=== PATIENT | male | born 1995 | race Caucasian/White ===

== ENCOUNTER 2021-02-06 09:22 | Emergency (ER) | payer BC, SELFPAY ==
[2021-02-06 10:27] LABS: SARS-COV-2 RT PCR NEGATIVE (NEGATIVE)
--- NOTE | 2021-02-06 11:31 | EDPHYS ---
Physician Documentation [facility] Name: Steve Fine Age: 26 yrs Sex: Male : 1995 Arrival Date: 02/06/2021 Time: 09: Bed 20 Private MD: JUAN JOSE Physician Rodrick Rangel HPI: 02/06 09:32 This 26 yrs old Male presents to ER via Ambulatory with complaints of Cold Symptoms. [facility] 09:32 The patient or guardian reports cough, described as moderate. Onset: The jmm symptoms/episode began/occurred gradually, 3 day(s) ago. Modifying factors: The symptoms are alleviated by nothing. the symptoms are aggravated by nothing. Associated signs and symptoms: Pertinent positives: fever, sore throat, Pertinent negatives:. The patient has not experienced similar symptoms in the past. Historical: - Allergies: 09:32 No Known Allergies; ll1 - PSHx: 09:32 gastric bypass; ll1 - Immunization history:: Client reports receiving the 2nd dose of the Covid vaccine. - Social history:: Smoking status: Patient denies any tobacco usage or history of. ROS: 09:32 Constitutional: Positive for body aches, chills, fever. jmm 09:32 Respiratory: Positive for cough. 09:32 Abdomen/GI: Negative for nausea and vomiting, diarrhea. 09:32 All other systems are negative. Exam: 09:32 Constitutional: This is a well developed, well nourished patient who is awake, alert, jmm and in no acute distress. Head/Face: atraumatic. Eyes: EOMI, no conjunctival erythema appreciated 09:32 Neck: Trachea midline, Supple Chest/axilla: Normal chest wall appearance and motion. Cardiovascular: Regular rate and rhythm. No edema appreciated Respiratory: Normal respirations, no respiratory distress appreciated Abdomen/GI: Non distended, soft Back: Normal ROM Skin: General appearance color normal MS/ Extremity: Moves all extremities, no obvious deformities appreciated, no edema noted to the lower extremities Neuro: Awake and alert, normal gait Psych: Behavior is normal, Mood is normal, Patient is cooperative and pleasant 09:32 ENT: Posterior pharynx: erythema, that is moderate. Vital Signs: 09:32 BP 126 / 72; Pulse 89; Resp 17; Temp 97.8; Pulse Ox 99% on R/A; Weight 120.2 kg; Height ll1 5 ft. 10 in. (177.80 cm); Pain 6/10; 11:39 BP 126 / 83; Pulse 84; Resp 17; Pulse Ox 99% on R/A; Pain 4/10; ll1 09:32 Body Mass Index 38.02 (120.20 kg, 177.80 cm) ll1 MDM: 09:29 Patient medically screened. [facility] 11:27 Data reviewed: vital signs, nurses notes. Counseling: I had a detailed discussion with torri the patient and/or guardian regarding: the historical points, exam findings, and any diagnostic results supporting the discharge/admit diagnosis, lab results, the need for outpatient follow up, to return to the emergency department if symptoms worsen or persist or if there are any questions or concerns that arise at home. 02/06 09:27 Order name: Strep; Complete Time: 10:52 [facility] 02/06 09:37 Order name: COVID-19/FLU A+B; Complete Time: 10:31 EDMS 02/06 10:44 Order name: Throat Culture EDND Administered Medications: No medications were administered Disposition: 02/07 10:29 Co-signature as Attending Physician, Rodrick Rangel MD I agree with the assessment and [facility] plan of care. Disposition Summary: 02/06/21 11:30 Discharge Ordered Location: Home [facility] Condition: Stable [facility] Diagnosis - Acute pharyngitis, unspecified [facility] Followup: [facility] - With: Private Physician - When: 2 - 3 days - Reason: Recheck today's complaints, Continuance of care, Re-evaluation by your physician Discharge Instructions: - Discharge Summary Sheet [facility] - Pharyngitis [facility] Forms: - Medication Reconciliation Form [facility] - Thank You Letter [facility] - Antibiotic Education [facility] - Prescription Opioid Use [facility] - Work release form ll1 Prescriptions: - Zithromax Z-Wellington 250 mg Oral Tablet - take 1 tablet by ORAL route as directed for 5 days Day 1 - take two (2) tablets [facility] one time. Day 2, 3, 4 , 5 take one (1) tablet once daily.; 6 tablet; Refills: 0, Product Selection Permitted Signatures: Dispatcher [employer] Rodrick Felder MD MD cha Mickail, Joel, PA PA jmm Lewis, Lynsay, RN RN ll1 Corrections: (The following items were deleted from the chart) 02/06 09:38 09:27 Influenza Screen (A \T\ B)+BA.LAB.YULIET ordered. EDMS EDMS 09:27 SARS-COV-2 RT PCR+MOL.LAB.YULIET ordered. EDMS EDMS
--- NOTE | 2021-02-06 11:31 | ER ---
Nurse's Notes [facility] Name: Steve Fine Age: 26 yrs Sex: Male : 1995 Arrival Date: 02/06/2021 Time: 09:26 Bed 20 Private MD: Diagnosis: Acute pharyngitis, unspecified Presentation: 02/06 09:32 Chief complaint: Patient states: Runny nose, slight cough, throat soreness, tired ll1 off/on since Friday. No fever. Coronavirus screen: Vaccine status: Patient reports receiving the 2nd dose of the covid vaccine. Client denies travel out of the [place] in the last 14 days. congestion, cough unrelated to allergies, diarrhea, fatigue, fever, nausea, runny nose, sore throat, Client presents with at least one sign or symptom that may indicate coronavirus-19. Standard/surgical mask placed on the client. Ebola Screen: Patient denies travel to an Ebola-affected area in the 21 days before illness onset. Initial Sepsis Screen: Does the patient meet any 2 criteria? No. Patient's initial sepsis screen is negative. Does the patient have a suspected source of infection? Yes: Productive cough/pneumonia. Risk Assessment: Do you want to hurt yourself or someone else? Patient reports no desire to harm self or others. Onset of symptoms was February 03, 2021. 09:32 Method Of Arrival: Ambulatory ll1 09:32 Acuity: MYA 4 ll1 Triage Assessment: 09:36 General: Appears in no apparent distress. Behavior is calm, cooperative, appropriate ll1 for age. Pain: Complains of pain in throat Pain currently is 6 out of 10 on a pain scale. Quality of pain is described as aching, Aggravated by eating, drinking. EENT: Nares are clear reports runny nose. reports sore throat. Reports difficulty swallowing nasal congestion nasal discharge. Neuro: No deficits noted. Cardiovascular: No deficits noted. Respiratory: Reports cough that is Airway is patent Trachea midline Respiratory effort is even, unlabored, Respiratory pattern is regular, symmetrical, Breath sounds are clear bilaterally. GI: Abdomen is flat, Bowel sounds present X 4 quads. Reports diarrhea. Historical: - Allergies: 09:32 No Known Allergies; ll1 - PSHx: :32 gastric bypass; ll1 - Immunization history:: Client reports receiving the 2nd dose of the Covid vaccine. - Social history:: Smoking status: Patient denies any tobacco usage or history of. Screenin:35 Abuse screen: Denies threats or abuse. Nutritional screening: No deficits noted. ll1 Tuberculosis screening: No symptoms or risk factors identified. Fall Risk Total Meyers Fall Scale indicates No Risk (0-24 pts). Assessment: 10:30 Reassessment: No changes from previously documented assessment. Patient and/or family ll1 updated on plan of care and expected duration. Pain level reassessed. Patient is alert, oriented x 3, equal unlabored respirations, skin warm/dry/pink. 11:30 Reassessment: No changes from previously documented assessment. Patient and/or family ll1 updated on plan of care and expected duration. Pain level reassessed. Patient is alert, oriented x 3, equal unlabored respirations, skin warm/dry/pink. Vital Signs: 09:32 BP 126 / 72; Pulse 89; Resp 17; Temp 97.8; Pulse Ox 99% on R/A; Weight 120.2 kg; Height ll1 5 ft. 10 in. (177.80 cm); Pain 6/10; 11:39 BP 126 / 83; Pulse 84; Resp 17; Pulse Ox 99% on R/A; Pain 4/10; ll1 09:32 Body Mass Index 38.02 (120.20 kg, 177.80 cm) ll1 ED Course: 09:26 Patient arrived in ED. am2 09:26 Subhash Brown PA is PHCP. [facility] 09:26 Rodrick Rangel MD is Attending Physician. [facility] 09:32 Kayla Kuhn, ALYSON is Primary Nurse. ll1 09:32 Arm band placed on Patient placed in an exam room, on a stretcher. ll1 09:35 Triage completed. ll1 09:35 Patient has correct armband on for positive identification. Bed in low position. Call 1 light in reach. Side rails up X 1. Pulse ox on. NIBP on. 09:40 COVID swab sent to lab. Flu and/or RSV swab sent to lab. mb7 11:40 No provider procedures requiring assistance completed. Patient did not have IV access ll1 during this emergency room visit. Administered Medications: No medications were administered Outcome: 11:30 Discharge ordered by . torri 11:40 Discharged to home ambulatory. ll1 11:40 Condition: stable 11:40 Discharge instructions given to patient, Instructed on discharge instructions, follow up and referral plans. medication usage, Demonstrated understanding of instructions, follow-up care, medications, Prescriptions given X 1. 11:40 Patient left the ED. ll1 Signatures: Subhash Brown PA PA jmm Moreno, Amanda am2 Lewis, Lynsay, RN RN ll1 Shanel Wilde mb7
[2021-02-06 11:45] VITALS: TEMP 97.8; O2SAT 99
[2021-02-06 11:47] VITALS: BP 126/83
== END 2021-02-06 11:40 | disposition home or self-care (01) ==
LOC: ER 09:22
DX: J02.9 Acute pharyngitis, unspecified (principal); Z20.822 Contact with and (suspected) exposure to COVID-19
CPT/HCPCS: 0240U; 87070; 87081; 99283

== ENCOUNTER 2022-10-20 12:14 | Emergency (ER) | payer SELFPAY ==
[2022-10-20] MEDS ORDERED: LIDOCAINE HCL JELLY 2% 6 ML SYRINGE TOP ONE (12:57)
--- NOTE | 2022-10-20 13:09 | ER ---
Nurse's Notes [facility] Name: Steve Fine Age: 27 yrs Sex: Male : 1995 Arrival Date: 10/20/2022 Time: 12:14 Bed 12 Private MD: Diagnosis: Paronychia Presentation: 10/20 12:24 Chief complaint: Patient states: Left 4th finger nail edge swelling and pain. Has tried nj1 fungal cream yesterday but today the pain was worse along with swelling. Took ibuprofen this morning which has helped with the pain. Coronavirus screen: Vaccine status: Patient reports receiving the 2nd dose of the covid vaccine. Ebola Screen: Patient denies travel to an Ebola-affected area in the 21 days before illness onset. Initial Sepsis Screen: Does the patient meet any 2 criteria? HR > 90 bpm. No. Patient's initial sepsis screen is negative. Does the patient have a suspected source of infection? No. Patient's initial sepsis screen is negative. Risk Assessment: Do you want to hurt yourself or someone else? Patient reports no desire to harm self or others. Onset of symptoms was October 18, 2022. 12:24 Method Of Arrival: Ambulatory [facility] 12:24 Acuity: MYA 4 nj1 Triage Assessment: 12:27 General: Appears in no apparent distress. comfortable, Behavior is calm, cooperative, nj1 appropriate for age. Pain: Complains of pain in left ring fingernail Pain currently is 6 out of 10 on a pain scale. Quality of pain is described as throbbing. Neuro: Level of Consciousness is awake, alert, obeys commands, Oriented to person, place, time, situation. Cardiovascular: Patient's skin is warm and dry. Respiratory: Airway is patent Respiratory effort is even, unlabored. Derm:. Derm: Swelling noted to lateral nail fold (left 4th digit). Historical: - Allergies: 12:26 No Known Allergies; nj1 - PMHx: 12:26 None; nj1 - PSHx: 12:26 Gastric Bypass; nj1 - Immunization history:: Client reports receiving the 2nd dose of the Covid vaccine. - Social history:: Smoking status: Patient denies any tobacco usage or history of. Screenin:29 [facility] ED Fall Risk Assessment (Adult) Score/Fall Risk Level 0 - 2 = Low Risk nj Oriented to surroundings, Maintained a safe environment, Hourly rounding (assess needs \T\ fall precautionary measures) done. Abuse screen: Denies threats or abuse. Denies injuries from another. Nutritional screening: No deficits noted. Tuberculosis screening: No symptoms or risk factors identified. Vital Signs: 12:24 BP 146 / 97; Pulse 92; Resp 18; Temp 98.6; Pulse Ox 99% ; Weight 131.54 kg; Height 5 nj1 ft. 10 in. ; Pain 6/10; 12:24 Body Mass Index 41.61 (131.54 kg, 177.8 cm) nj1 12:24 Pain Scale: Adult [facility] ED Course: 12:16 Patient arrived in ED. ts1 12:19 [facility]C [facility] 12:19 Gm Edmond MD is Attending Physician. snw 12:26 Triage completed. nj1 12:27 Arm band placed on right wrist. nj1 12:29 Patient has correct armband on for positive identification. Bed in low position. Call [facility] light in reach. Provided Education on: fall precautions, call light. Administered Medications: 12:49 Drug: Lidocaine Mucous Membrane Gel 2 % 1 application Route: Mucous Membrane; nj1 13:25 Drug: Mupirocin Topical Ointment 2 % 1 application Route: Topical; Site: affected area; [facility] Outcome: 13:09 Discharge ordered by . snw 13:29 Patient left the ED. hb Signatures: Leanne Brown FNP-C FNP-Csnw Supriya Soto RN RN Macy Perrin RN RN nj1 Jacinta Valencia PAS [place] [id number]
--- NOTE | 2022-10-20 13:09 | EDPHYS ---
Physician Documentation [facility] Name: Steve Fine Age: 27 yrs Sex: Male : 1995 Arrival Date: 10/20/2022 Time: 12:14 Bed 12 Private MD: ED Physician Gm Edmond HPI: 10/20 12:40 This 27 yrs old Male presents to ER via Ambulatory with complaints of Nail pain. snw 12:40 Onset: The symptoms/episode began/occurred acutely, and became persistent. The patient snw has not experienced similar symptoms in the past. It is unknown whether or not the patient has recently seen a physician. Historical: - Allergies: 12:26 No Known Allergies; nj1 - PMHx: 12:26 None; nj1 - PSHx: 12:26 Gastric Bypass; nj1 - Immunization history:: Client reports receiving the 2nd dose of the Covid vaccine. - Social history:: Smoking status: Patient denies any tobacco usage or history of. ROS: 12:40 Constitutional: Negative for fever, chills, and weight loss, Eyes: Negative for injury, snw pain, redness, and discharge, ENT: Negative for injury, pain, and discharge, Neck: Negative for injury, pain, and swelling, Cardiovascular: Negative for chest pain, palpitations, and edema, Respiratory: Negative for shortness of breath, cough, wheezing, and pleuritic chest pain, Abdomen/GI: Negative for abdominal pain, nausea, vomiting, diarrhea, and constipation, Back: Negative for injury and pain, : Negative for injury, bleeding, discharge, and swelling, MS/Extremity: Negative for injury and deformity, Neuro: Negative for headache, weakness, numbness, tingling, and seizure, Psych: Negative for depression, anxiety, suicide ideation, homicidal ideation, and hallucinations. 12:40 Skin: Positive for painful to left 4th fingernail. Exam: 12:39 Constitutional: This is a well developed, well nourished patient who is awake, alert, snw and in no acute distress. Head/Face: Normocephalic, atraumatic. Eyes: Pupils equal round and reactive to light, extra-ocular motions intact. Lids and lashes normal. Conjunctiva and sclera are non-icteric and not injected. Cornea within normal limits. Periorbital areas with no swelling, redness, or edema. ENT: Nares patent. No nasal discharge, no septal abnormalities noted. Tympanic membranes are normal and external auditory canals are clear. Oropharynx with no redness, swelling, or masses, exudates, or evidence of obstruction, uvula midline. Mucous membranes moist. Neck: Trachea midline, no thyromegaly or masses palpated, and no cervical lymphadenopathy. Supple, full range of motion without nuchal rigidity, or vertebral point tenderness. No Meningismus. Chest/axilla: Normal chest wall appearance and motion. Nontender with no deformity. No lesions are appreciated. Back: No spinal tenderness. No costovertebral tenderness. Full range of motion. Skin: Warm, dry with normal turgor. Normal color with no rashes, no lesions, and no evidence of cellulitis. left fourth finger tender, collection of pus noted at nail margin. MS/ Extremity: Pulses equal, no cyanosis. Neurovascular intact. Full, normal range of motion. Neuro: Awake and alert, GCS 15, oriented to person, place, time, and situation. Cranial nerves II-XII grossly intact. Motor strength 5/5 in all extremities. Sensory grossly intact. Cerebellar exam normal. Normal gait. Psych: Awake, alert, with orientation to person, place and time. Behavior, mood, and affect are within normal limits. Vital Signs: 12:24 BP 146 / 97; Pulse 92; Resp 18; Temp 98.6; Pulse Ox 99% ; Weight 131.54 kg; Height 5 nj1 ft. 10 in. ; Pain 6/10; 12:24 Body Mass Index 41.61 (131.54 kg, 177.8 cm) nj 12:24 Pain Scale: Adult nj1 MDM: 12:30 Patient medically screened. snw 13:10 Differential diagnosis: bacterial infection. Data reviewed: vital signs, nurses notes. snw Counseling: I had a detailed discussion with the patient and/or guardian regarding the historical points, exam findings, and any diagnostic results supporting the discharge/admit diagnosis, the need for outpatient follow up, for definitive care, to return to the emergency department if symptoms worsen or persist or if there are any questions or concerns that arise at home. Response to treatment: the patient's symptoms have markedly improved after treatment. Special discussion: Based on the history and exam findings, there is no indication for further emergent testing or inpatient evaluation. I discussed with the patient/guardian the need to see the primary care provider for further evaluation of the symptoms. Administered Medications: 12:49 Drug: Lidocaine Mucous Membrane Gel 2 % 1 application Route: Mucous Membrane; nj1 13:25 Drug: Mupirocin Topical Ointment 2 % 1 application Route: Topical; Site: affected area; nj1 Disposition Summary: 10/20/22 13:09 Discharge Ordered Location: Home snw Condition: Stable snw Diagnosis - Paronychia snw Followup: snw - With: Emergency Department - When: As needed - Reason: Worsening of condition Followup: snw - With: Private Physician - When: As needed - Reason: Discharge Instructions: - Discharge Summary Sheet snw - Paronychia snw Forms: - Medication Reconciliation Form snw - Thank You Letter snw - Antibiotic Education snw - Prescription Opioid Use snw - Patient Portal Instructions snw - Leadership Thank You Letter snw - Work release form nj Prescriptions: - mupirocin 2 % Topical ointment - apply 1 application by TOPICAL route 3 times per day; 15 gram tube; Refills: 0, snw Product Selection Permitted - Mobic 7.5 mg Oral Tablet - take 1 tablet by ORAL route once daily take with food; 20 tablet; Refills: 0, snw Product Selection Permitted Signatures: Leanne Brown FNP-C [employer]-Csnw Macy Perrin, RN RN nj1
[2022-10-20] MEDS ORDERED: MUPIROCIN 2% OINT 22GM TUBE TOP ONE (13:29)
[2022-10-20 13:36] VITALS: BP 146/97; TEMP 98.6; O2SAT 99
== END 2022-10-20 13:29 | disposition home or self-care (01) ==
LOC: ER 12:14
DX: L03.012 Cellulitis of left finger (principal)
CPT/HCPCS: 99282

== ENCOUNTER 2024-04-04 15:31 | Emergency (ER) | payer OTHER, SELFPAY ==
--- OUTSIDE RECORDS SUMMARY | 2024-04-04 15:34 | XMS REPORT | Continuity of Care Document ---
Author Name Unknown Address [address] [facility] [address] [place] [address] [facility] thconnect Address [address] [facility] [address] [place] [address] Care Team Providers Care Electroneurodiagnostic Technician Name Role Phone HAILY QUESADA M.D. 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, not elsewhere classified Problem Active [facility] Malnutriti on Malnutriti on Problem Active [facility] Vital Signs Vital Name Observation Time Observation Value Comments S ource Weight 2019-07-30 08:28:00 341 [lb_av] [facility] Body height 2019-07-30 08:28:00 70 [in_us] [facility] Body mass index (BMI) [Ratio] 2019-07-30 08:28:00 48.93 kg/m2 [facility] Height 2019-01-18 12:17:00 70 [in_us] [facility] Weight 2019-01-18 12:17:00 359.9 [lb_av] [facility] Body Mass Index Calculated 2019-01-18 12:17:00 51.64 kg/m2 [facility] BP Systolic 2018-09-04 10:04:00 114 mm[Hg] [facility] BP Diastolic 2018-09-04 10:04:00 52 mm[Hg] [facility] Height 2018-09-04 10:04:00 70 [in_us] [facility] Weight 2018-09-04 10:04:00 376.7 [lb_av] [facility] Body Mass Index Calculated 2018-09-04 10:04:00 54.05 kg/m2 [facility] Temperature 2018-09-04 10:04:00 97.1 [degF] [facility] Heart Rate 2018-09-04 10:04:00 90 /min [facility] Procedures Procedure Date / Time Performed Performing Clinicia n Source [LH] CBC (without differential) 2018-09-04 00:00:00 [facility] [QL] COMPREHENSIVE METABOLIC PANEL W/O eGFR 2018-09-04 00:00:00 [facility] [QLH] FOLATE, SERUM 2018-09-04 00:00:00 [facility] [QLH] HEMOGLOBIN A1c 2018-09-04 00:00:00 [facility] [QLH] IRON AND TOTAL IRON BINDING CAPACITY 2018-09-04 00:00:00 [facility] [QLH] LIPID PANEL 2018-09-04 00:00:00 [facility] [QLH] PTH, INTACT (WITHOUT CALCIUM) 2018-09-04 00:00:00 [facility] [QLH] TSH, 3RD GENERATION 2018-09-04 00:00:00 [facility] [QLH] VITAMIN A (RETINOL) 2018-09-04 00:00:00 [facility] [QLH] VITAMIN B1, WHOLE BLOOD 2018-09-04 00:00:00 [facility] [QLH] VITAMIN B12 2018-09-04 00:00:00 [facility] [QLH] VITAMIN D, 25-HYDROXY, LC/MS/MS 2018-09-04 00:00:00 [facility] [QLH] VITAMIN E (TOCOPHEROL) 2018-09-04 00:00:00 [facility] Encounters Start Date/Time End Date/Time Encounter Type Admission Type Attending Clinicians Care Facility Care Department Encounter ID Source 2019-07-30 08:00:00 2019-07-30 08:00:00 Appointdali t; HAILY QUESADA M.D. BAJWA, KULVINDER, M.D. [facility] [id number] [facility] 2019-07-22 05:51:00 2019-07-26 10:38:00 Inpatient HAILY QUESADA [facility] [id number] [facility] 2019-05-14 09:00:00 2019-05-14 09:00:00 Appointmen t; HAILY QUESADA M.D. BAJWA, KULVINDER, M.D. [facility] [id number] [facility] 2019-03-01 13:00:00 2019-03-01 13:00:00 Appointmen t; WOLIN-RIKL INGEETA, RD WOLIN-RIKLI N, GEETA, RD [facility] [id number] [facility] 2019-02-18 09:45:00 2019-02-18 09:45:00 Appointmen t; WOLIN-RIKL INGEETA RD REMAIN-RIKLI N, GEETA, RD [facility] [id number] [facility] 2019-01-18 13:00:00 2019-01-18 13:00:00 Appointmen t; WOLIN-RIKL INGEETA RD REMAIN-RIKLI N, GEETA, RD [facility] [id number] [facility] 2019-01-18 12:30:00 2019-01-18 12:30:00 Appointmen t; GREGORY CHAPMAN APRN KLEIN, CONNIE, APRN [facility] [id number] [facility] 2018-12-17 09:00:00 2018-12-17 09:00:00 Appointmen t; WOLIN-RIKL INGEETA RD WOLIN-RIKLI N, GEETA, RD [facility] [id number] [facility] 2018-12-10 09:00:00 2018-12-10 09:00:00 Appointmen t; WOLIN-RIKL INGEETA RD REMAIN-RIKLI N, GEETA, RD [facility] [id number] [facility] 2018-11-12 09:00:00 2018-11-12 09:00:00 Appointmen t; WOLIN-RIKL INGEETA RD REMAIN-RIKLI N, GEETA, RD [facility] [id number] [facility] 2018-10-14 08:15:00 2018-10-14 08:15:00 Appointmen t; HAILY QUESADA M.D. BAJWA, KULVINDER, M.D. [facility] [id number] [facility] 2018-10-14 06:25:00 2018-10-14 06:25:00 Outpatient [facility] [id number] [facility] 2018-10-08 09:00:00 2018-10-08 09:00:00 Appointmen t; GEETA ROMAN, RD GEETA ELIZONDO RD [facility] [id number] [facility] 2018-09-04 10:00:00 2018-09-04 10:00:00 Appointmen t; HAILY QUESADA M.D. BAJWA, KULVINDER, M.D. [facility] ([facility]) [id number] [facility] Results Test Description Test Time Test Comments Results Result Co mments Source [facility] VITAMIN D, 25-HYDROXY, LC/MS/[id number] 11:38:01* Test Item Value Reference Range Interpretation Comme nts Vitamin D, 25-OH, Total (test code = Vitamin D, 25-OH, Total) 16.9 ng/ml 30.0-100.0 Reference range is based on recommendations in the [employer] Clinical Practice Guideline (J Clin Endocrinol Ehppj1129;96:6510-0463) [facility][QL] FOLATE, [id number] 11:38:01* Test Item Value Reference Range Interpretation Comme nts Folate Level (test code = 2284-8) 7.8 ng/ml >=3.0 [facility][QL] IRON AND TOTAL IRON BINDING [id number] 11:38:01* Test Item Value Reference Range Interpretation Comme nts Iron (test code = 2498-4) 71 ug/dL 45-160 % Satur Fe (test code = 2502-3) 20 % 12-57 TIBC (test code = 2500-7) 353 ug/dL 228-428 UIBC (test code = UIBC) 282 ug/dL 110-370 [facility] LIPID [id number] 11:38:01* Test Item Value Reference Range Interpretation Comme nts LDL; Above High Threshold (t est code = 72120-1) 109 mg/dl <=99 Chol (test code = 2093-3) 170 mg/dl <=199 Trig (test code = 2571-8) 95 mg/dl <=149 HDL Cholesterol; Below Low Threshold (test code = 2085-9) 42 mg/dl >=61 CHD Risk (test code = 52646-9) 4.05 4.00-7.30 VLDL (test code = VLDL) 19 [facility][QLH] TSH, 3RD [id number] 11:38:01* Test Item Value Reference Range Interpretation Comme nts TSH (test code = 10580-2) 0.481 {uIU/ml} 0.360-3.740 [facility][QL] VITAMIN [id number] 11:38:01* Test Item Value Reference Range Interpretation Comme [facility] Vitamin B12 Level (test code = 2132-9) 368 pg/ml 254-1320 [facility][QL] HEMOGLOBIN [id number] 11:38:01* Test Item Value Reference Range Interpretation Comme [facility] Hemoglobin A1c (test code = 4548-4) 5.5 % <=5.6 [facility][QL] PTH, INTACT (WITHOUT CALCIUM)2018-09-04 11:38:01* Test Item Value Reference Range Interpretation Comme [facility] Parathyroid Hormone Intact ( test code = 2731-8) 62.6 pg/ml 18.4-80.1 [facility][] Vitamin E [id number] 11:38:01* Test Item Value Reference Range Interpretation Comme [facility] Alpha-Tocoph yoana (test code = Alpha-Tocoph yoana) 6.3 mg/L 5.9-19.4 This test was de veloped and its performance characteristicsdetermined by [facility]. It has not been cleared orapproved by the Food and Drug Administration. Gamma-Tocoph yoana (test code = Gamma-Tocoph yoana) 2.0 mg/L 0.7-4.9 This test was de veloped and its performance characteristicsdetermined by [facility]. It has not been cleared orapproved by the Food and Drug Administration.Reference intervals for alpha and gamma-tocopheroldetermined from National Health and Nutrition ExaminationSurvey, . Individuals with alpha-tocopherol levelsless than 5.0 mg/L are considered vitamin E deficient.Performed At: [facility] [id number] De Jesus Ferris MD Ph:[phone] [facility][H] Vit [id number] 11:38:01* Test Item Value Reference Range Interpretation Comme nts Vitamin A Level (test code = Vitamin A Level) 41.0 ug/dL 18.9-57.3 Reference interv als for vitamin A determined from [facility] studies. Individuals with vitamin A less than 20ug/dL are considered vitamin A deficient and those withserum concentrations less than 10 ug/dL are consideredseverely deficient.This test was developed and its performance characteristicsdetermined by [facility]. It has not been cleared orapproved by the Food and Drug Administration.Performed At: [facility] [id number] De Jesus Ferris MD Ph:[phone] [facility][QLH] VITAMIN B1, WHOLE [id number] 11:38:01* Test Item Value Reference Range Interpretation Comme nts Vitamin B1 Level (test code = Vitamin B1 Level) 101.5 nmol/L 66.5-200.0 This test was develo ped and its performance characteristicsdetermined by [facility]. It has not been cleared orapproved by the Food and Drug Administration.Performed At: [facility] [id number] De Jesus Ferris MD Ph:[phone] [facility]
--- NOTE | 2024-04-04 16:05 | EDPHYS ---
Physician Documentation [facility] Name: Steve Fine Age: 29 yrs Sex: Male : 1995 Arrival Date: 04/04/2024 Time: 15:31 Bed IW2 Private MD: ED Physician Duran Hernandez HPI: 04/04 16:02 This 29 yrs old Male presents to ER via Unassigned with complaints of Sore Throat. rn 16:02 The patient presents with sore throat. The patient describes throat pain as raw. Onset: rn The symptoms/episode began/occurred today. Severity of symptoms: At their worst the symptoms were mild, in the emergency department the symptoms are unchanged. The patient has not experienced similar symptoms in the past. Historical: - Allergies: 16:05 Bees; cm10 - Home Meds: 16:05 None [Active]; cm10 - PMHx: 16:05 None; cm10 - PSHx: 16:05 Gastric Bypass; cm10 - Immunization history:: Adult Immunizations up to date. - Infectious Disease History:: Denies. - Family history:: not pertinent. - Social history:: Smoking status: Patient denies any tobacco usage or history of. - Hospitalizations: : No recent hospitalization is reported. ROS: 16:02 Constitutional: Negative for fever, chills, and weight loss, ENT: Positive for sore rn throat Cardiovascular: Negative for chest pain, palpitations, and edema, Respiratory: Positive for cough, negative for shortness of breath Abdomen/GI: Negative for abdominal pain, nausea, vomiting, diarrhea, and constipation, Back: Negative for injury and pain, MS/Extremity: Negative for injury and deformity, Neuro: Negative for headache, weakness, numbness, tingling, and seizure, Exam: 16:02 Constitutional: This is a well developed, well nourished patient who is awake, alert, rn and in no acute distress. ENT: Mild pharyngeal erythema, uvula midline, no stridor Neck: Nontender cervical lymphadenopathy. No meningismus. Vital Signs: 16:04 BP 138 / 67; Pulse 100; Resp 15; Temp 99.1; Pulse Ox 100% ; Weight 127.01 kg; Height 5 cm10 ft. 8 in. ; Pain 7/10; 16:04 Body Mass Index 42.57 (127.01 kg, 172.72 cm) cm10 16:04 Pain Scale: Adult cm10 MDM: 15:43 Medical Screening Exam initiated rn 16:05 Differential diagnosis: group A strep tonsillitis, pharyngitis. Data reviewed: vital rn signs, nurses notes, and as a result, I will discharge patient. Counseling: I had a detailed discussion with the patient and/or guardian regarding the historical points, exam findings, and any diagnostic results supporting the discharge/admit diagnosis, the need for outpatient follow up, to return to the emergency department if symptoms worsen or persist or if there are any questions or concerns that arise at home. Special discussion: I discussed with the patient/guardian in detail that at this point there is no indication for admission to the hospital. It is understood, however, that if the symptoms persist or worsen the patient needs to return immediately for re-evaluation. Administered Medications: No medications were administered Disposition Summary: 04/04/24 16:05 Discharge Ordered Notes: Location: Home rn Problem: new rn Symptoms: have improved rn Condition: Stable rn Diagnosis - Acute pharyngitis, unspecified rn Followup: rn - With: Private Physician - When: As needed - Reason: Recheck today's complaints, Re-evaluation by your physician Discharge Instructions: - Pharyngitis rn - Sore Throat rn - Discharge Summary Sheet cm10 Forms: - Medication Reconciliation Form rn - Antibiotic corn breeder - Prescription Opioid Use rn - Patient Portal Instructions rn - Leadership Thank You Letter rn - Work release form cm10 Prescriptions: - Augmentin 875-125 mg Oral Tablet - take 1 tablet ORAL route every 12 hours for 10 days; 20 tablet; Refills: 0, rn Product Selection Permitted Signatures: Duran Hernandez MD MD rn Martinez, Clarissa, RN RN [facility]
--- NOTE | 2024-04-04 16:05 | ER ---
Nurse's Notes [facility] Name: Steve Fine Age: 29 yrs Sex: Male : 1995 Arrival Date: 04/04/2024 Time: 15:31 Bed IW2 Private MD: Diagnosis: Acute pharyngitis, unspecified Presentation: 04/04 16:03 Chief complaint: Patient states: Sore throat and cough onset today. cm10 16:04 Coronavirus screen: Client denies travel out of the [place] in the last 14 days. Ebola cm10 Screen: Patient denies travel to an Ebola-affected area in the 21 days before illness onset. Initial Sepsis Screen: Does the patient meet any 2 criteria? HR > 90 bpm. Does the patient have a suspected source of infection? No. Patient's initial sepsis screen is negative. Risk Assessment: Do you want to hurt yourself or someone else? Patient reports no desire to harm self or others. Onset of symptoms was April 04, 2024. 16:04 Method Of Arrival: Ambulatory cm10 16:04 Acuity: MYA 4 cm10 Triage Assessment: 16:05 General: Appears in no apparent distress. comfortable, Behavior is calm, cooperative. cm10 Pain: Complains of pain in Throat Pain currently is 7 out of 10 on a pain scale. EENT: Reports pain when swallowing. Neuro: No deficits noted. Level of Consciousness is awake, alert, obeys commands, Oriented to person, place, time, situation, Appropriate for age. Respiratory: No deficits noted. Airway is patent Respiratory effort is even, unlabored, Respiratory pattern is regular, symmetrical. Derm: No deficits noted. Skin is pink, warm \T\ dry. Musculoskeletal: No deficits noted. Range of motion: intact in all extremities. Historical: - Allergies: 16:05 Bees; cm10 - Home Meds: 16:05 None [Active]; cm10 - PMHx: 16:05 None; cm10 - PSHx: 16:05 Gastric Bypass; cm10 - Immunization history:: Adult Immunizations up to date. - Infectious Disease History:: Denies. - Family history:: not pertinent. - Social history:: Smoking status: Patient denies any tobacco usage or history of. - Hospitalizations: : No recent hospitalization is reported. Screenin:06 [facility] ED Fall Risk Assessment (Adult) History of falling in the last 3 months, cm10 including since admission No falls in past 3 months (0 pts) Confusion or Disorientation No (0 pts) Intoxicated or Sedated No (0 pts) Impaired Gait No (0 pts) Mobility Assist Device Used No (0 pt) Altered Elimination No (0 pt) Score/Fall Risk Level 0 - 2 = Low Risk Oriented to surroundings, Maintained a safe environment, Hourly rounding (assess needs \T\ fall precautionary measures) done. Abuse screen: Denies threats or abuse. Denies injuries from another. Nutritional screening: No deficits noted. Tuberculosis screening: No symptoms or risk factors identified. Vital Signs: 16:04 BP 138 / 67; Pulse 100; Resp 15; Temp 99.1; Pulse Ox 100% ; Weight 127.01 kg; Height 5 cm10 ft. 8 in. ; Pain 7/10; 16:04 Body Mass Index 42.57 (127.01 kg, 172.72 cm) cm10 16:04 Pain Scale: Adult cm10 ED Course: 15:34 Patient arrived in ED. ra3 15:42 Duran Hernandez MD is Attending Physician. rn 16:05 Triage completed. cm10 16:05 Arm band placed on right wrist. Patient placed in waiting room. cm10 16:06 Patient has correct armband on for positive identification. Provided Education on: cm10 Follow-up instructions. 16:06 No provider procedures requiring assistance completed. Patient did not have IV access cm10 during this emergency room visit. Administered Medications: No medications were administered Medication: 16:06 VIS not applicable for this client. cm10 Outcome: 16:05 Discharge ordered by . rn 16:06 Discharged to home ambulatory, cm10 16:06 Condition: good 16:06 Discharge instructions given to patient, Instructed on discharge instructions, follow up and referral plans. medication usage, Demonstrated understanding of instructions, follow-up care, medications, Prescriptions given X 1, 16:09 Patient left the ED. cm10 Signatures: Duran Hernandez MD MD rn Martinez, Clarissa, RN RN cm10 Alva, Ruby ra3
[2024-04-04 16:30] VITALS: BP 138/67; TEMP 99.1; O2SAT 100
== END 2024-04-04 16:09 | disposition home or self-care (01) ==
LOC: ER 15:31
DX: J02.9 Acute pharyngitis, unspecified (principal)
CPT/HCPCS: 99283

== ENCOUNTER 2024-11-30 02:21 | Emergency (ER) | payer OTHER ==
--- OUTSIDE RECORDS SUMMARY | 2024-11-30 02:24 | XMS REPORT | Continuity of Care Document ---
Author Name Unknown Address [address] [facility] [address] [place] [address] Organization [facility] [place] Address [address] [facility] [address] [place] [address] Care Team Providers Care Wheel Press Operator Name Role Phone HAILY QUESADA M.D. Attending [...] s BP Systolic 2018-09-04 10:04:00 114 mm[Hg] [facility] BP Diastolic 2018-09-04 10:04:00 52 mm[Hg] [facility] Height 2018-09-04 10:04:00 70 [in_us] [facility] Weight 2018-09-04 10:04:00 376.7 [lb_av] [facility] Body Mass Index Calculated 2018-09-04 10:04:00 54.05 kg/m2 [facility] Temperature 2018-09-04 10:04:00 97.1 [degF] [facility] Heart Rate 2018-09-04 10:04:00 90 /min [facility] Procedures Procedure Date / Time Performed Performing Clinicia n Source [LH] CBC (without differential) 2018-09-04 00:00:00 [facility] [QL] COMPREHENSIVE METABOLIC PANEL W/O eGFR 2018-09-04 00:00:00 [facility] [QLH] FOLATE, SERUM 2018-09-04 00:00:00 [facility] [QLH] HEMOGLOBIN A1c 2018-09-04 00:00:00 [facility] [QLH] IRON AND TOTAL IRON BINDING CAPACITY 2018-09-04 00:00:00 [facility] [QLH] LIPID PANEL 2018-09-04 00:00:00 [facility] [QLH] PTH, INTACT (WITHOUT CALCIUM) 2018-09-04 00:00:00 [facility] [QLH] TSH, 3RD GENERATION 2018-09-04 00:00:00 [facility] [QLH] VITAMIN A (RETINOL) 2018-09-04 00:00:00 [facility] [QLH] VITAMIN B1, WHOLE BLOOD 2018-09-04 00:00:00 [facility] [QLH] VITAMIN B12 2018-09-04 00:00:00 [facility] [QLH] VITAMIN D, 25-HYDROXY, LC/MS/MS 2018-09-04 00:00:00 [facility] [QLH] VITAMIN E (TOCOPHEROL) 2018-09-04 00:00:00 [facility] Encounters Start Date/Time End Date/Time Encounter Type Admission Type Attending Clinicians Care Facility Care Department Encounter ID Source 2019-07-30 08:00:00 2019-07-30 08:00:00 Appointdali t; HAILY QUESADA M.D. BAJWA, KULVINDER, M.D. [facility] [id number] [facility] 2019-07-22 05:51:00 2019-07-26 10:38:00 Inpatient HAILY QUESADA [facility] [id number] [facility] 2019-05-14 09:00:00 2019-05-14 09:00:00 Appointmen t; HAILY QUESADA M.D. BAJWA, KULVINDER, M.D. [facility] [id number] [facility] 2019-03-01 13:00:00 2019-03-01 13:00:00 Appointmen t; WOLIN-RIKL INGEETA, RD REMAIN-RIKLI N, GEETA, RD [facility] [id number] [facility] 2019-02-18 09:45:00 2019-02-18 09:45:00 Appointmen t; WOLIN-RIKL INGEETA RD REMAIN-RIKLI N, GEETA, RD [facility] [id number] [facility] 2019-01-18 13:00:00 2019-01-18 13:00:00 Appointmen t; WOLIN-RIKL INGEETA RD REMAIN-RIKLI N, GEETA, RD [facility] [id number] [facility] 2019-01-18 12:30:00 2019-01-18 12:30:00 Appointmen t; GREGORY CHAPMAN APRN KLEIN, CONNIE, APRN [facility] [id number] [facility] 2018-12-17 09:00:00 2018-12-17 09:00:00 Appointmen t; WOLIN-RIKL INGEETA RD REMAIN-RIKLI N, GEETA, RD [facility] [id number] [facility] 2018-12-10 09:00:00 2018-12-10 09:00:00 Appointmen t; WOLIN-RIKL INGEETA RD UMBERTO-RIKLI N, GEETA, RD UTP [facility]TP [id number] [facility] 2018-11-12 09:00:00 2018-11-12 09:00:00 Appointmen t; WOLIN-RIKL INGEETA RD REMAIN-RIKLI N, GEETA, RD UTP [facility]TP [id number] [facility] 2018-10-14 08:15:00 2018-10-14 08:15:00 Appointmen t; HAILY QUESADA M.D. BAJWA, KULVINDER, M.D. [facility] [id number] [facility] 2018-10-14 06:25:00 2018-10-14 06:25:00 Outpatient [facility] [id number] [facility] 2018-10-08 09:00:00 2018-10-08 09:00:00 Appointmen t; GEETA ROMAN, GEETA GTZ RD [facility] [id number] [facility] 2018-09-04 10:00:00 2018-09-04 10:00:00 Appointmen t; HAILY QUESADA M.D. BAJWA, KULVINDER, M.D. [facility] ([facility]) [id number] [facility] Results Test Description Test Time Test Comments Results Result Co mments Source [facility]] VITAMIN D, 25-HYDROXY, LC/MS/[id number] 11:38:01* Test Item Value Reference Range Interpretation Comme nts Vitamin D, 25-OH, Total (test code = Vitamin D, 25-OH, Total) 16.9 ng/ml 30.0-100.0 Reference range is based on recommendations in the [employer] Clinical Practice Guideline (J Clin Endocrinol Uliyn5631;96:4049-8150) [facility][QL] FOLATE, [id number] 11:38:01* Test Item Value Reference Range Interpretation Comme nts Folate Level (test code = 2284-8) 7.8 ng/ml >=3.0 [facility][QL] IRON AND TOTAL IRON BINDING [id number] 11:38:01* Test Item Value Reference Range Interpretation Comme nts Iron (test code = 2498-4) 71 ug/dL 45-160 % [place] Fe (test code = 2502-3) 20 % 12-57 TIBC (test code = 2500-7) 353 ug/dL 228-428 UIBC (test code = UIBC) 282 ug/dL 110-370 [facility]] LIPID [id number] 11:38:01* Test Item Value Reference Range Interpretation Comme nts LDL; Above High Threshold (t est code = 02000-8) 109 mg/dl <=99 Chol (test code = 2093-3) 170 mg/dl <=199 Trig (test code = 2571-8) 95 mg/dl <=149 HDL Cholesterol; Below Low Threshold (test code = 2085-9) 42 mg/dl >=61 CHD Risk (test code = 01389-1) 4.05 4.00-7.30 VLDL (test code = VLDL) 19 [facility][QL] TSH, 3RD [id number] 11:38:01* Test Item Value Reference Range Interpretation Comme nts TSH (test code = 96313-6) 0.481 {uIU/ml} 0.360-3.740 [facility][QL] VITAMIN [id number] 11:38:01* Test Item Value Reference Range Interpretation Comme [facility] Vitamin B12 Level (test code = 2132-9) 368 pg/ml 254-1320 [facility][QL] HEMOGLOBIN [id number] 11:38:01* Test Item Value Reference Range Interpretation Comme [facility] Hemoglobin A1c (test code = 4548-4) 5.5 % <=5.6 [facility][QL] PTH, INTACT (WITHOUT CALCIUM)2018-09-04 11:38:01* Test Item Value Reference Range Interpretation Comme [facility] Parathyroid Hormone Intact ( test code = 2731-8) 62.6 pg/ml 18.4-80.1 [facility][] Vitamin E [id number] 11:38:01* Test Item Value Reference Range Interpretation Comme [facility] Alpha-Tocoph yoana (test code = Alpha-Tocoph [...] gamma-tocopheroldetermined from National Health and Nutrition ExaminationSurvey, [id number]. Individuals with alpha-tocopherol levelsless than 5.0 mg/L are considered vitamin E deficient.Performed At: [facility] [id number] De Jesus Ferris MD Ph:[phone] [facility][H] Vit [id number] 11:38:01* Test Item Value Reference Range Interpretation Comme nts Vitamin A Level (test code = Vitamin A Level) 41.0 ug/dL 18.9-57.3 Reference interv als for vitamin A determined from LabCorpinternal studies. Individuals with vitamin A less than 20ug/dL are considered vitamin A deficient and those withserum concentrations less than 10 ug/dL are consideredseverely deficient.This test was developed and its performance characteristicsdetermined by [employer]. It has not been cleared orapproved by the Food and Drug Administration.Performed At: [facility] [id number] De Jesus Ferris MD Ph:[phone] [facility][QLH] VITAMIN B1, WHOLE [id number] 11:38:01* Test Item Value Reference Range Interpretation Comme nts Vitamin B1 Level (test code = Vitamin B1 Level) 101.5 nmol/L 66.5-200.0 This test was develo ped and its performance characteristicsdetermined by [employer]. It has not been cleared orapproved by the Food and Drug Administration.Performed At: [facility] [id number] De Jesus Ferris MD Ph:[phone] [facility]
[2024-11-30] MEDS ORDERED: ONDANSETRON 4 MG (ODT) TAB ONE (02:47)
[2024-11-30] MEDS ORDERED: BENZONATATE 100 MG CAP PO ONE (02:48)
[2024-11-30 03:21] LABS: Influenza A Ag Negative; Influenza B Ag Negative; SARS-CoV-2 Antigen Rapid Res Negative (Negative)
--- NOTE | 2024-11-30 04:02 | EDPHYS ---
Physician Documentation [facility] Name: Steve Fine Age: 29 yrs Sex: Male : 1995 Arrival Date: 11/30/2024 Time: 02:21 Bed 7 Private MD: ED Physician Rodrick Rangel HPI: 11/30 02:45 This 29 yrs old Male presents to ER via Ambulatory with complaints of Cough, cp Congestion, bodyaches. 02:45 The patient or guardian reports cough, with productive sputum, that is purulent. cp 02:45 Onset: The symptoms/episode began/occurred this past with symptoms becoming cp worse on Friday. 02:45 Associated signs and symptoms: Pertinent positives: nausea, sore throat, body aches, cp fatigue, Pertinent negatives: fever, vomiting. Historical: - Allergies: 02:43 Bees; bm8 - Home Meds: 02:43 Unable to obtain [Active]; bm8 - PMHx: 02:43 Hypertensive disorder; bm8 - PSHx: 02:43 Gastric Bypass; bm8 - Immunization history:: Adult Immunizations up to date. - Infectious Disease History:: Denies. - Social history:: Smoking status: Patient reports the use of cigarette tobacco products, Patient denies any tobacco usage or history of. Patient/guardian denies using alcohol, street drugs. ROS: 02:50 Constitutional: Positive for body aches, fatigue, Negative for fever, poor PO intake, cp 02:50 Cardiovascular: Negative for chest pain, 02:50 Eyes: Negative for injury, pain, redness, and discharge, cp 02:50 ENT: Positive for sore throat, 02:50 Respiratory: Positive for cough, Negative for shortness of breath, wheezing, 02:50 Abdomen/GI: Positive for nausea, Negative for abdominal pain, vomiting, diarrhea, constipation, 02:50 Neuro: Negative for altered mental status, headache, weakness, 02:50 All other systems are negative, Exam: 02:50 Head/Face: Normocephalic, atraumatic. cp 02:50 Constitutional: The patient appears in no acute distress, alert, awake, non-toxic, well developed, well nourished, obese, 02:50 Eyes: Periorbital structures: appear normal, Conjunctiva: normal, no exudate, no injection, Sclera: no appreciated abnormality, Lids and lashes: appear normal, bilaterally, 02:50 ENT: External ear(s): are unremarkable, Nose: is normal, Mouth: Lips: moist, Oral mucosa: moist, Posterior pharynx: Airway: no evidence of obstruction, patent, erythema, that is moderate, exudate, is not appreciated, 02:50 Neck: ROM/movement: Meningeal signs: are not present, Lymph nodes: no appreciated lymphadenopathy, 02:50 Chest/axilla: Inspection: normal, 02:50 Cardiovascular: Rate: tachycardic, 02:50 Respiratory: the patient does not display signs of respiratory distress, Respirations: normal, no use of accessory muscles, no retractions, labored breathing, is not present, Breath sounds: bronchial sounds, that are mild, are heard diffusely, stridor, is not appreciated, wheezing: is not appreciated, 02:50 Abdomen/GI: Inspection: obese Vital Signs: 02:35 BP 151 / 81; Pulse 108; Resp 16; Temp 98.4; Pulse Ox 98% ; Weight 131.54 kg; Height 5 bm8 ft. 9 in. ; Pain 4/10; 02:52 BP 149 / 80; Pulse 102; Resp 19; Pulse Ox 99% on R/A; kd3 03:43 BP 135 / 68; Pulse 98; Resp 19; Pulse Ox 98% on R/A; kd3 02:35 Body Mass Index 42.83 (131.54 kg, 175.26 cm) bm8 02:35 Pain Scale: Adult bm8 MDM: 02:36 Medical Screening Exam initiated cp 04:00 Data reviewed: vital signs, nurses notes. cp 04:00 Differential Diagnosis: Bronchitis Influenza Pharyngitis Otitis Media Viral Syndrome cp Pneumonia. I considered the following discharge prescriptions or medication management in the emergency department Medications were administered in the Emergency Department. See MAR. Independent interpretation of the following test(s) in the Emergency Department X-Ray: My interpretation is images of chest negative for focal pneumonia. Test considered but Not performed: Labs: cbc, cmp. Care significantly affected by the following chronic conditions: Hypertension. Counseling: I had a detailed discussion with the patient and/or guardian regarding the historical points, exam findings, and any diagnostic results supporting the discharge/admit diagnosis, lab results, radiology results, to return to the emergency department if symptoms worsen or persist or if there are any questions or concerns that arise at home. Response to treatment: the patient's symptoms have mildly improved after treatment, and as a result, I will discharge patient. 11/30 02:41 Order name: Group A Streptococcus Rapid cp 11/30 02:41 Order name: COVID-19 Ag + Flu A+B Ag cp 11/30 03:02 Order name: Throat Culture EDMS 11/30 02:41 Order name: XRAY Chest Pa And Lat (2 Views) cp Administered Medications: 02:51 Drug: Tessalon Perle PO 200 mg PO once Route: PO; kd3 02:51 Drug: Ondansetron PO 4 mg PO once Route: PO; kd3 Disposition Summary: 11/30/24 04:01 Discharge Ordered Notes: Location: Home cp Problem: new cp Symptoms: have improved cp Condition: Stable cp Diagnosis - Cough cp - Acute pharyngitis, unspecified cp Followup: cp - With: Private Physician - When: 2 - 3 days - Reason: Worsening of condition Discharge Instructions: - Discharge Summary Sheet cp - Pharyngitis cp - Sore Throat cp - Cough, Adult cp - Form - Return To Work cp Forms: - Medication Reconciliation Form cp - Antibiotic Education cp - Prescription Opioid Use cp - Patient Portal Instructions cp - Leadership Thank You Letter cp - Work release form kd3 Prescriptions: - Bromfed DM 2-30-10 mg/5 mL Oral syrup - administer 10 milliliter ORAL route every 8 hours as needed for cold symptoms; cp 240 milliliter; Refills: 0, Product Selection Permitted - Ibuprofen 800 mg Oral Tablet - take 1 tablet ORAL route every 8 hours As needed take with food; 30 tablet; cp Refills: 0, Product Selection Permitted - Zithromax Z-Wellington 250 mg Oral Tablet - take 1 tablet ORAL route as directed for 5 days Day 1 - take two (2) tablets cp one time. Day 2, 3, 4 , 5 take one (1) tablet once daily.; 6 tablet; Refills: 0, Product Selection Permitted Addendum: 12/15/2024 08:08 Co-signature as Attending Physician, Rodrick Rangel MD I agree with the assessment and c muro plan of care. Signatures: Dispatcher [employer] Rodrick Felder MD MD cha Page, Corey, PA-C PA-C Ashley Oliva RN RN kd3 Farooq Andino RN RN bm8 Corrections: (The following items were deleted from the chart) 11/30 06: 06:07 Constitutional: Positive for body aches, fatigue, Negative for fever, poor PO cp intake, cp : 06:07 Cardiovascular: Negative for chest pain, cp cp
--- NOTE | 2024-11-30 04:02 | ER ---
Nurse's Notes [facility] Name: Steve Fine Age: 29 yrs Sex: Male : 1995 Arrival Date: 11/30/2024 Time: 02:21 Bed 7 Private MD: Diagnosis: Cough;Acute pharyngitis, unspecified Presentation: 11/30 02:35 Chief complaint: Patient states: Friday I started feeling bad, now I have cough bm8 congestion sore throat and body aches. 02:35 Coronavirus screen: Vaccine status: Patient reports receiving the 2nd dose of the covid bm8 vaccine. Ebola Screen: Patient negative for fever greater than or equal to 101.5 degrees Fahrenheit, and additional compatible Ebola Virus Disease symptoms Patient denies exposure to infectious person. Patient denies travel to an Ebola-affected area in the 21 days before illness onset. No symptoms or risks identified at this time. Resp Distress? No respiratory distress is noted at this time. Initial Sepsis Screen: Does the patient meet any 2 criteria? No. Patient's initial sepsis screen is negative. Does the patient have a suspected source of infection? No. Patient's initial sepsis screen is negative. Risk Assessment: Do you want to hurt yourself or someone else? Patient reports no desire to harm self or others. Onset of symptoms was November 27, 2024. 02:35 Method Of Arrival: Ambulatory bm8 02:35 Acuity: MYA 4 bm8 Triage Assessment: 02:43 General: Appears in no apparent distress. comfortable, Behavior is calm, cooperative, bm8 appropriate for age. Pain: Complains of pain in generalized body Pain currently is 4 out of 10 on a pain scale. EENT: Reports nasal congestion. Neuro: No deficits noted. Level of Consciousness is awake, alert, obeys commands, Oriented to person, place, time, situation, Appropriate for age. Cardiovascular: Reports shortness of breath, Denies chest pain, Capillary refill < 3 seconds in bilateral fingers Patient's skin is warm and dry. Respiratory: Airway is patent Respiratory effort is even, unlabored, Respiratory pattern is regular, symmetrical, Breath sounds are clear bilaterally. Respiratory: Reports shortness of breath on exertion cough that is non-productive. GI: No deficits noted. No signs and/or symptoms were reported involving the gastrointestinal system. : No deficits noted. No signs and/or symptoms were reported regarding the genitourinary system. Derm: No deficits noted. No signs and/or symptoms reported regarding the dermatologic system. Musculoskeletal: No deficits noted. No signs and/or symptoms reported regarding the musculoskeletal system. Historical: - Allergies: 02:43 Bees; bm8 - Home Meds: 02:43 Unable to obtain [Active]; bm8 - PMHx: 02:43 Hypertensive disorder; bm8 - PSHx: 02:43 Gastric Bypass; bm8 - Immunization history:: Adult Immunizations up to date. - Infectious Disease History:: Denies. - Social history:: Smoking status: Patient reports the use of cigarette tobacco products, Patient denies any tobacco usage or history of. Patient/guardian denies using alcohol, street drugs. Screenin:46 [facility] ED Fall Risk Assessment (Adult) History of falling in the last 3 months, bm8 including since admission No falls in past 3 months (0 pts) Confusion or Disorientation No (0 pts) Intoxicated or Sedated No (0 pts) Impaired Gait No (0 pts) Mobility Assist Device Used No (0 pt) Altered Elimination No (0 pt) Score/Fall Risk Level 0 - 2 = Low Risk Oriented to surroundings, Maintained a safe environment, Educated pt \T\ family on fall prevention, incl call for assistance when getting out of bed, Assessed \T\ reinforced patient's understanding of fall precautions, Hourly rounding (assess needs \T\ fall precautionary measures) done, Used ambulatory aids as needed (educated on \T\ assisted with), Used gait belt as appropriate. Abuse screen: Denies threats or abuse. Nutritional screening: No deficits noted. Tuberculosis screening: No symptoms or risk factors identified. Assessment: 02:46 Reassessment: see triage assessment. bm8 02:52 General: Appears in no apparent distress. Behavior is calm, cooperative. Neuro: Level kd3 of Consciousness is awake, alert, obeys commands, Oriented to person, place, time, situation. Cardiovascular: Capillary refill < 3 seconds Patient's skin is warm and dry. Respiratory: Airway is patent Trachea midline Respiratory effort is even, unlabored, Respiratory pattern is regular, symmetrical. 03:44 Reassessment: Patient and/or family updated on plan of care and expected duration. Pain kd3 level reassessed. Patient is alert, oriented x 3, equal unlabored respirations, skin warm/dry/pink. Patient states feeling better. Patient states symptoms have improved. Vital Signs: 02:35 BP 151 / 81; Pulse 108; Resp 16; Temp 98.4; Pulse Ox 98% ; Weight 131.54 kg; Height 5 bm8 ft. 9 in. ; Pain 4/10; 02:52 BP 149 / 80; Pulse 102; Resp 19; Pulse Ox 99% on R/A; kd3 03:43 BP 135 / 68; Pulse 98; Resp 19; Pulse Ox 98% on R/A; kd3 02:35 Body Mass Index 42.83 (131.54 kg, 175.26 cm) bm8 02:35 Pain Scale: Adult bm8 ED Course: 02:26 Patient arrived in ED. gm2 02:36 [facility]. cp 02:36 Rodrick Rangel MD is Attending Physician. cp 02:41 Farooq Andino, RN is Primary Nurse. bm8 02:43 Triage completed. bm8 02:43 Arm band placed on right wrist. bm8 02:46 Patient has correct armband on for positive identification. Bed in low position. Call bm8 light in reach. Side rails up X 1. Client placed on continuous cardiac and pulse oximetry monitoring. NIBP monitoring applied. Pulse ox on. NIBP on. Door closed. Pillow given. Verbal reassurance given. Head of bed elevated. 02:46 COVID swab sent to lab. Flu and/or RSV swab sent to lab. Patient maintains SpO2 bm8 saturation greater than 95% on room air. 02:51 COVID-19 Ag + Flu A+B Ag Sent. kd3 02:51 Group A Streptococcus Rapid Sent. kd3 03:00 XRAY Chest Pa And Lat (2 Views) In Process Unspecified. EDMS 04:09 Provided Education on: antibiotics . kd3 04:09 No provider procedures requiring assistance completed. Patient did not have IV access kd3 during this emergency room visit. Administered Medications: 02:51 Drug: Tessalon Perle PO 200 mg PO once Route: PO; kd3 02:51 Drug: Ondansetron PO 4 mg PO once Route: PO; kd3 Medication: 02:46 VIS not applicable for this client. bm8 Outcome: 04:01 Discharge ordered by . cp 04:09 Discharged to home ambulatory, kd3 04:09 Condition: stable 04:09 Discharge instructions given to patient, Instructed on discharge instructions, follow up and referral plans. Demonstrated understanding of instructions, follow-up care, medications, Prescriptions given X 4, 04:10 Patient left the ED. kd3 Signatures: Dispatcher [employer] EDMS Rodrick Muro PA-C PA-C cp Doucette, Kyli RN RN kd3 Ivy Pressley 2 Farooq Andino RN RN bm8
[2024-11-30 04:36] VITALS: TEMP 98.4
[2024-11-30 04:38] VITALS: BP 135/68; O2SAT 98
--- NOTE | 2024-11-30 06:15 | RAD REPORT ---
EXAMINATION: XR CHEST 2 VIEWS INDICATION: 29 years old Male 1995 Cough. COMPARISON(S): None. TECHNIQUE: 2 views X-ray of the chest was performed. FINDINGS: Support Devices: None. Heart: Cardiac silhouette is normal in size. Mediastinum: Mediastinal contours are normal. Lungs: Lungs are well aerated and clear. Osseous Structures: Visualized skeleton is normal. IMPRESSION: 1. No acute findings. Electronically signed by: Grabiel Douglass MD 11/30/2024 04:54 AM CDT Due to temporary technical issues with the PACS/GrayBug reporting system, reports are being lacho d by the in-house radiologist without review as a courtesy to ensure prompt reporting the interpreting radiologist is fully responsible for the content of the report. Transcribed Date/Time: 11/30/2024 6:14 AM
== END 2024-11-30 04:10 | disposition home or self-care (01) ==
LOC: ER 02:21
DX: R05.9 Cough, unspecified (principal); J02.9 Acute pharyngitis, unspecified; I10 Essential (primary) hypertension; Z11.52 Encounter for screening for COVID-19; F17.210 Nicotine dependence, cigarettes, uncomplicated
CPT/HCPCS: 87070; 36415; 71046; 99284; 87428; Q0162